=== PATIENT | male | born 2005 | race Two or more races ===

== ENCOUNTER 2024-03-19 14:12 | Inpatient (IN) | payer OTHER ==
[~2024-03-19] VITALS: Ht 177.8 cm; Wt 65.9 kg
--- NOTE | 2024-03-19 15:09 | NUR ---
PTE ALERTA Y ORIENTADO X3, EN COMPANIA DE PADRE. QUIEN REFIERE TRAER A PTE POR RESULTADOS DE LABORATORIOS CON PLAQUETAS EN 77. VIENE CON REFERIDO DE LA . SE JOIV SV Y SE UBICA
[2024-03-19] MEDS ORDERED: FAMOTIDINE/PF 20 MG/2 ML VIAL IV STA (15:54)
[2024-03-19] MEDS ORDERED: DEXTROSE 5 %-0.45 % SOD CHLORD 1,000 ML IV SCH (16:00)
[2024-03-19] MEDS ORDERED: ACETAMINOPHEN 500 MG GEL..CAP PO PRN (16:00)
[2024-03-19] MEDS ORDERED: FAMOTIDINE/PF 20 MG/2 ML VIAL ONE (16:12)
[2024-03-19 16:14] LABS: URINE APPEARANCE Cloudy; URINE BILIRRUBIN Small (NEGATIVE); URINE BLOOD NHT; URINE COLOR Dark Yellow; URINE GLUCOSE Negative (NEGATIVE); URINE LEUKOCYTE Negative; URINE NITRATE Negative
[2024-03-19 16:18] LABS: URINE BACTERIA 21.4 uL (0.0-1933); URINE EPITHELIAL CELLS 23.3 uL (0.0-38.8); URINE RBC 75.5 uL (0.0-20.8); URINE WBC 21.4 uL (0.0-23.2)
[2024-03-19 16:21] LABS: HEMATOCRIT 49.9 % (39.0-48.0); HEMOGLOBIN 16.8 g/dL (13-16.00); MEAN CELL VOLUME 87.8 fL (80.0-100.00); MEAN CORPUSCULAR HEMOGLOBIN 29.6 pg (27.00-32.0); MEAN CORPUSCULAR HGB CONC 33.8 g/dl (32.0-36.0); RED BLOOD COUNT 5.69 M/uL (4.00-6.00); RED CELL DISTRIBUTION WIDTH 12.8 % (11.5-14.5)
[2024-03-19 16:23] LABS: PLATELET COUNT 77 K/uL (150-450)
--- NOTE | 2024-03-19 16:24 | NUR ---
SE ORIENTA A PACIENTE Y FAMILIAR SOBRE TRATAMIENTO MEDICO QUIENES INDICAN ENTENDER Y ACEPTAR. SE JOVI MUESTRAS DE LABORATORIO BAJO MEDIDAS ASEPTICAS Y SE ADMINISTRAN MEDICAMENTOS RO ORDEN MEDICA. VENOPUNCION SE ENCUENTRA PATENTE PETTY DE EDEMA Y ERITEMA. SE MANTIENE EN OBSERVACION POR CAMBIOS.
[2024-03-19 16:30] LABS: URINE CAST 0.76 uL (0.0-1.40); URINE KETONE 80 (NEGATIVE); URINE PROTEIN 100 (NEGATIVE)
[2024-03-19 16:35] LABS: ALBUMIN 3.8 gm/dL (3.4-5.0); BILIRUBIN TOTAL 0.72 mg/dL (0.3-1.2); CALCIUM 8.9 mg/dL (8.5-10.1); CREATININE SERUM 1.02 mg/dL (0.70-1.30); GFR 93.11; GLOBULINA 3.8 G/DL (2.4-3.5); POTASSIUM 4.16 mEq/L (3.5-5.1); TOTAL PROTEIN 7.6 gm/dL (6.4-8.2)
[2024-03-19] MEDS ORDERED: RINGERS SOLUTION,LACTATED 500 ML IV SCH (16:45)
[2024-03-19 17:09] VITALS: BP 125/75
[2024-03-19 21:45] VITALS: BP 108/64; O2SAT 100
[2024-03-19 23:30] VITALS: BP 101/66; O2SAT 100
[2024-03-20] VITALS (7 sets, daily range): BP systolic 86–102; BP diastolic 55–72; O2SAT 98–100
[2024-03-20 07:05] LABS: HEMOGLOBIN 14.5 g/dL (13-16.00); MEAN CORPUSCULAR HEMOGLOBIN 29.4 pg (27.00-32.0); MEAN CORPUSCULAR HGB CONC 33.8 g/dl (32.0-36.0); RED BLOOD COUNT 4.94 M/uL (4.00-6.00); RED CELL DISTRIBUTION WIDTH 12.9 % (11.5-14.5)
[2024-03-20 07:13] LABS: ALBUMIN 3.1 gm/dL (3.4-5.0); BILIRUBIN TOTAL 0.65 mg/dL (0.3-1.2); CALCIUM 7.7 mg/dL (8.5-10.1); CREATININE SERUM 0.86 mg/dL (0.70-1.30); GFR 113.37; GLOBULINA 2.6 G/DL (2.4-3.5); POTASSIUM 3.93 mEq/L (3.5-5.1); TOTAL PROTEIN 5.7 gm/dL (6.4-8.2)
[2024-03-20 07:46] LABS: PLATELET COUNT 60 K/uL (150-450)
[2024-03-20] MEDS ORDERED: 0.9 % SODIUM CHLORIDE 500 ML IV ONE (09:45)
[2024-03-20] MEDS ORDERED: 0.9 % SODIUM CHLORIDE 1,000 ML IV SCH ×2 (10:48→16:15)
[2024-03-20] MEDS ORDERED: DIPHENHYDRAMINE HCL 50 MG/ML VIAL 1ML IV PRN (11:00)
[2024-03-21] VITALS: BP 100/60; O2SAT 97
[2024-03-21 04:39] VITALS: BP 109/70; O2SAT 96
[2024-03-21 06:18] LABS: URINE APPEARANCE Clear; URINE BILIRRUBIN Negative (NEGATIVE); URINE BLOOD Negative; URINE COLOR Yellow; URINE GLUCOSE Negative (NEGATIVE); URINE KETONE Trace (NEGATIVE); URINE LEUKOCYTE Negative; URINE NITRATE Negative; URINE PROTEIN Negative (NEGATIVE)
[2024-03-21 06:22] LABS: URINE BACTERIA 198.9 uL (0.0-1933); URINE RBC 4.2 uL (0.0-20.8)
[2024-03-21 06:25] LABS: URINE EPITHELIAL CELLS 0.9 uL (0.0-38.8); URINE WBC 1.2 uL (0.0-23.2)
[2024-03-21 06:35] LABS: HEMATOCRIT 41.2 % (39.0-48.0); MEAN CELL VOLUME 87.4 fL (80.0-100.00); MEAN CORPUSCULAR HEMOGLOBIN 29.6 pg (27.00-32.0); MEAN CORPUSCULAR HGB CONC 33.9 g/dl (32.0-36.0); RED BLOOD COUNT 4.72 M/uL (4.00-6.00); RED CELL DISTRIBUTION WIDTH 12.7 % (11.5-14.5)
[2024-03-21 06:45] LABS: ALBUMIN 2.9 gm/dL (3.4-5.0); BILIRUBIN TOTAL 0.72 mg/dL (0.3-1.2); CALCIUM 7.6 mg/dL (8.5-10.1); CREATININE SERUM 0.78 mg/dL (0.70-1.30); GFR 126.9; GLOBULINA 2.7 G/DL (2.4-3.5); POTASSIUM 4.17 mEq/L (3.5-5.1); TOTAL PROTEIN 5.6 gm/dL (6.4-8.2)
[2024-03-21 07:16] LABS: PLATELET COUNT 75 K/uL (150-450)
[2024-03-21] MEDS ORDERED: ACETAMINOPHEN 500 MG GEL..CAP PO PRN ×2 (07:39→12:30)
[2024-03-21 08:50] VITALS: BP 109/73; O2SAT 98
[2024-03-21 12:21] VITALS: BP 120/76; O2SAT 98
[2024-03-21 16:40] VITALS: BP 102/66; O2SAT 99
[2024-03-21 19:46] VITALS: BP 112/63; O2SAT 98
[2024-03-22] VITALS: BP 113/70; O2SAT 97
[2024-03-22 03:41] VITALS: BP 122/81; O2SAT 95
[2024-03-22 06:39] LABS: HEMATOCRIT 39.4 % (39.0-48.0); HEMOGLOBIN 13.8 g/dL (13-16.00); MEAN CELL VOLUME 84.8 fL (80.0-100.00); MEAN CORPUSCULAR HEMOGLOBIN 29.7 pg (27.00-32.0); RED BLOOD COUNT 4.65 M/uL (4.00-6.00)
[2024-03-22 06:40] LABS: PLATELET COUNT 117 K/uL (150-450)
[2024-03-22 07:06] LABS: BILIRUBIN TOTAL 0.86 mg/dL (0.3-1.2); CALCIUM 7.9 mg/dL (8.5-10.1); CREATININE SERUM 0.76 mg/dL (0.70-1.30); GFR 130.76; POTASSIUM 4.22 mEq/L (3.5-5.1)
[2024-03-22 08:45] VITALS: BP 107/65; O2SAT 97
[2024-03-22 12:50] VITALS: BP 104/70; O2SAT 99
[2024-03-22 16:00] VITALS: BP 126/87; O2SAT 100
[2024-03-23 00:09] VITALS: BP 92/54; O2SAT 98
[2024-03-23 04:00] VITALS: BP 101/68; O2SAT 96
[2024-03-23 06:46] LABS: INR 1.13; PARTIAL THROMBOPLASTIN TIME 34.7 SECONDS (22.0-34.0); PROTHROMBIN TIME 12.2 SECONDS (9.0-11.5)
[2024-03-23 06:48] LABS: MEAN CELL VOLUME 84.3 fL (80.0-100.00); MEAN CORPUSCULAR HEMOGLOBIN 29.6 pg (27.00-32.0); MEAN CORPUSCULAR HGB CONC 35.1 g/dl (32.0-36.0); PLATELET COUNT 183 K/uL (150-450); RED BLOOD COUNT 4.39 M/uL (4.00-6.00); RED CELL DISTRIBUTION WIDTH 13.3 % (11.5-14.5)
[2024-03-23 06:55] LABS: ALBUMIN 2.7 gm/dL (3.4-5.0); BILIRUBIN TOTAL 0.79 mg/dL (0.3-1.2); CALCIUM 7.7 mg/dL (8.5-10.1); CREATININE SERUM 0.55 mg/dL (0.70-1.30); GFR 189.91; POTASSIUM 4.12 mEq/L (3.5-5.1); TOTAL PROTEIN 5.7 gm/dL (6.4-8.2)
[2024-03-23 09:00] VITALS: BP 115/73; O2SAT 97
[2024-03-23 12:08] VITALS: BP 118/74; O2SAT 100
[2024-03-23 16:00] VITALS: BP 115/72; O2SAT 98
[2024-03-23 20:15] VITALS: BP 118/82; O2SAT 97
[2024-03-24 00:56] VITALS: BP 106/70; O2SAT 96
[2024-03-24 08:00] VITALS: BP 121/65; O2SAT 97
[2024-03-24 08:41] LABS: ALBUMIN 2.8 gm/dL (3.4-5.0); BILIRUBIN TOTAL 0.63 mg/dL (0.3-1.2); CALCIUM 8.1 mg/dL (8.5-10.1); CREATININE SERUM 0.66 mg/dL (0.70-1.30); GFR 153.88; GLOBULINA 3.4 G/DL (2.4-3.5); POTASSIUM 4.31 mEq/L (3.5-5.1); TOTAL PROTEIN 6.2 gm/dL (6.4-8.2)
[2024-03-24 10:49] LABS: HEMATOCRIT 39.5 % (39.0-48.0); HEMOGLOBIN 13.7 g/dL (13-16.00); MEAN CELL VOLUME 86.7 fL (80.0-100.00); MEAN CORPUSCULAR HEMOGLOBIN 30.2 pg (27.00-32.0); MEAN CORPUSCULAR HGB CONC 34.8 g/dl (32.0-36.0); PLATELET COUNT 283 K/uL (150-450); RED BLOOD COUNT 4.55 M/uL (4.00-6.00); RED CELL DISTRIBUTION WIDTH 12.8 % (11.5-14.5)
[2024-03-24 12:00] VITALS: BP 112/71; O2SAT 95
[2024-03-24 15:30] VITALS: BP 120/76; O2SAT 95
[2024-03-24 19:56] VITALS: BP 128/84; O2SAT 95
[2024-03-25 00:47] VITALS: BP 124/68; O2SAT 97
[2024-03-25 05:29] VITALS: BP 132/77; O2SAT 97
[2024-03-25 07:29] LABS: ALBUMIN 2.7 gm/dL (3.4-5.0); BILIRUBIN TOTAL 0.54 mg/dL (0.3-1.2); CALCIUM 7.8 mg/dL (8.5-10.1); CREATININE SERUM 0.66 mg/dL (0.70-1.30); GFR 153.88; GLOBULINA 3.5 G/DL (2.4-3.5); POTASSIUM 4.13 mEq/L (3.5-5.1); TOTAL PROTEIN 6.2 gm/dL (6.4-8.2)
[2024-03-25 08:00] VITALS: BP 120/85; O2SAT 95
[2024-03-25 08:01] LABS: HEMOGLOBIN 12.8 g/dL (13-16.00); MEAN CELL VOLUME 85.3 fL (80.0-100.00); MEAN CORPUSCULAR HEMOGLOBIN 29.4 pg (27.00-32.0); MEAN CORPUSCULAR HGB CONC 34.5 g/dl (32.0-36.0); PLATELET COUNT 403 K/uL (150-450); RED BLOOD COUNT 4.37 M/uL (4.00-6.00); RED CELL DISTRIBUTION WIDTH 13.2 % (11.5-14.5)
[2024-03-25 08:55] LABS: HEMATOCRIT 37.3 % (39.0-48.0)
== END 2024-03-25 09:48 | disposition home or self-care (01) | DRG 866 ==
LOC: ER 14:14 → EMR PED 14:14 → PED 17:48
PROVIDERS: Emergency Medicine Pediatric Emergency Medicine; Student in an Organized Health Care Education/Training Program; ADMIT Emergency Medicine; ATTEND Emergency Medicine
PROC: BW40ZZZ Ultrasonography of Abdomen (ICD-10-PCS; principal; 2024-03-19)
DX: A90 Dengue fever [classical dengue] (principal); B19.9 Unspecified viral hepatitis without hepatic coma; D69.6 Thrombocytopenia, unspecified; D72.819 Decreased white blood cell count, unspecified; R74.01 Elevation of levels of liver transaminase levels